=== PATIENT | female | born 1980 | race Caucasian/White ===

== ENCOUNTER 2016-10-26 19:16 | Emergency (ER) | payer OTHER ==
[~2016-10-26] VITALS: Ht 165.1 cm; Wt 78.9 kg
[~2016-10-26 19:16] MED LIST: IMITREX50 MG PO
[2016-10-26 20:57] LABS: INFLUENZA A VIRAL ANTIGEN POSITIVE; INFLUENZA B VIRAL ANTIGEN POSITIVE
[2016-10-26 21:06] LABS: ADD MIUA? YES; BILIRUBIN NEGATIVE; BLOOD NEGATIVE; COLOR YELLOW ((YELLOW)); GLUCOSE (STRIP) NEGATIVE; KETONES NEGATIVE; LEUKOCYTES NEGATIVE; NITRITE NEGATIVE; PROTEIN (STRIP) 30; SPECIFIC GRAVITY 1.031 (1.000-1.030); UROBILINOGEN 0.2 MG/DL (0.2-1.0)
[2016-10-26 21:19] LABS: INTERNAL CONTROL VALID? YES
[2016-10-26] MEDS ORDERED: TAMIFLU75 MG PO (21:20)
[2016-10-26 21:33] LABS: RED BLOOD CELLS 0-5 /HPF (0-5); WHITE BLOOD CELLS 0-5 /HPF (0-5)
[2016-10-26 21:36] LABS: BACTERIA NONE SEEN /HPF; CRYSTALS PRESENT; EPITHELIAL CELLS NONE SEEN /HPF; MUCUS NONE SEEN /LPF; UCUL ADDED? NO
[2016-10-26 21:37] VITALS: BP 114/68
[2016-10-26 21:37] LABS: URIC ACID CRYSTALS 3+ /HPF
== END 2016-10-26 21:38 | disposition home or self-care (01) ==
LOC: EME 19:16
PROVIDERS: Physician Assistant
DX: J10.1 Influenza due to other identified influenza virus with other respiratory manifestations (principal); R19.7 Diarrhea, unspecified; M54.2 Cervicalgia; R51 Headache; Z88.0 Allergy status to penicillin
CPT/HCPCS: 81003; 84703; 87502; 87651 90; 99281; 99284

== ENCOUNTER 2017-01-14 20:07 | Emergency (ER) | payer OTHER ==
[~2017-01-14] VITALS: Ht 165.1 cm; Wt 81.3 kg
[~2017-01-14 20:07] MED LIST changes: +TAMIFLU75 MG PO
[2017-01-14 22:44] LABS: ADD MIUA? YES; BILIRUBIN NEGATIVE; BLOOD LARGE; COLOR YELLOW ((YELLOW)); GLUCOSE (STRIP) NEGATIVE; KETONES NEGATIVE; LEUKOCYTES NEGATIVE; NITRITE NEGATIVE; PROTEIN (STRIP) NEGATIVE; UROBILINOGEN 0.2 MG/DL (0.2-1.0)
[2017-01-14 23:15] LABS: BACTERIA NONE SEEN /HPF; EPITHELIAL CELLS NONE SEEN /HPF; MUCUS NONE SEEN /LPF; UCUL ADDED? NO; WHITE BLOOD CELLS 0-5 /HPF (0-5)
[2017-01-15] MEDS ORDERED: MOTRIN600 MG PO (00:52)
[2017-01-15] MEDS ORDERED: ROBAXIN750 MG PO (00:52)
[2017-01-15] MEDS ORDERED: LIDOCARE1 EACH TP (00:52)
[2017-01-15] MEDS ORDERED: ENDOCET 5-3251 EACH PO (00:52)
[2017-01-15 01:06] VITALS: BP 145/107
== END 2017-01-15 01:12 | disposition home or self-care (01) ==
LOC: EME → EDBD 20:07 → EME 20:07
PROVIDERS: Emergency Medicine
DX: M54.42 Lumbago with sciatica, left side (principal); G56.03 Carpal tunnel syndrome, bilateral upper limbs; Z88.0 Allergy status to penicillin
CPT/HCPCS: 81003; 99281; 99284; J1885; J2270; J3010

== ENCOUNTER 2017-02-05 20:20 | Inpatient (IN) | payer OTHER ==
[~2017-02-05] VITALS: Ht 165.1 cm; Wt 83.1 kg
[~2017-02-05 20:20] MED LIST changes: +ENDOCET 5-3251 EACH PO; +LIDOCARE1 EACH TP; +MOTRIN600 MG PO; +ROBAXIN750 MG PO; +XANAX1 MG PO
[2017-02-05 21:18] LABS: HEMATOCRIT 38.2 % (36.0-46.0); MCH 25.9 PG (29.0-34.0); MCHC 32.2 G/DL (30.0-36.0); MCV 80.6 FL (83-99); PLATELET COUNT 282 K/uL (156-360); RBC DIS.WIDTH-CV 14.1 % (11.8-14.6); RBC DIS.WIDTH-SD 41.4 % (39-53); RED BLOOD COUNT 4.74 M/uL (3.80-5.20); WHITE BLOOD COUNT 11.7 K/uL (4.1-10.2)
[2017-02-05 21:27] LABS: CHLORIDE 108 mEq/L (99-109); POTASSIUM 4.2 mEq/L (3.7-5.4); SODIUM 139 mEq/L (136-147)
[2017-02-05 21:29] LABS: GLUCOSE 96 mg/dL (70-99)
[2017-02-05 21:31] LABS: ANION GAP 6 MEQ/L (2-14); TOTAL BILIRUBIN 0.2 mg/dL (0.0-1.0)
[2017-02-05 21:32] LABS: SERUM ETHYL ALCOHOL < 10 mg/dL
[2017-02-05 21:33] LABS: ALKALINE PHOSPHATASE 75 IU/L (3-129); GFR ESTIMATE (CALCULATED) > 59 mL/min/
[2017-02-05 21:34] LABS: UREA NITROGEN (BUN) 12 mg/dL (9-23)
[2017-02-05 23:06] LABS: ADD MIUA? YES; BILIRUBIN NEGATIVE; BLOOD NEGATIVE; COLOR YELLOW ((YELLOW)); GLUCOSE (STRIP) NEGATIVE; KETONES NEGATIVE; LEUKOCYTES NEGATIVE; NITRITE NEGATIVE; PROTEIN (STRIP) NEGATIVE; SPECIFIC GRAVITY 1.014 (1.000-1.030); UROBILINOGEN 0.2 MG/DL (0.2-1.0)
[2017-02-05 23:18] LABS: AMPHETAMINE NEGATIVE (500 ng/mL); BARBITURATES NEGATIVE (200 ng/mL); BENZODIAZEPINES PRESUMPTIVE POSITIVE (150 ng/mL); COCAINE NEGATIVE (150 ng/mL); INTERNAL CONTROLS VALID? YES; METHADONE NEGATIVE (200 ng/mL); METHAMPHETAMINE NEGATIVE (500 ng/mL); OPIATES (MORPHINE) NEGATIVE (100 ng/mL); OXYCODONE NEGATIVE (100 ng/mL); PHENCYCLIDINE NEGATIVE (25 ng/mL); PROPOXYPHENE NEGATIVE (300 ng/mL); THC CANNABINOIDS NEGATIVE (50 ng/mL); TRICYCLIC ANTIDEPRESSANTS NEGATIVE (300 ng/mL)
[2017-02-05 23:19] LABS: ADD MEDTOX COMMENT Y
[2017-02-05 23:33] LABS: AMORPHOUS URATES CRYSTALS 3+; BACTERIA NONE SEEN /HPF; CRYSTALS PRESENT; EPITHELIAL CELLS 2+ /HPF; MUCUS 2+ /LPF; RED BLOOD CELLS NONE SEEN /HPF (0-5); WHITE BLOOD CELLS NONE SEEN /HPF (0-5)
[2017-02-05] MEDS ORDERED: LEXAPRO10 MG PO (23:59)
[2017-02-06 02:14] VITALS: BP 123/78
[2017-02-06 07:52] VITALS: BP 103/47
[2017-02-06 10:26] VITALS: BP 134/93
[2017-02-06 15:36] VITALS: BP 131/82
[2017-02-07 07:53] VITALS: BP 118/83
[2017-02-07] MEDS ORDERED: LAMICTAL25 MG PO (09:35)
[2017-02-07] MEDS ORDERED: ESCITALOPRAM OX20 MG PO (09:35)
== END 2017-02-07 13:00 | disposition home or self-care (01) | DRG 885 ==
LOC: EME 20:20 → 1WEST 22:42 → EDOF 22:42 → ENRESERV 02-06 01:40 → 1WEST 02-06 02:04
PROVIDERS: Emergency Medicine
DX: F33.9 Major depressive disorder, recurrent, unspecified (principal); X78.1XXA Intentional self-harm by knife, initial encounter; Y92.481 Parking lot as the place of occurrence of the external cause; F41.1 Generalized anxiety disorder; Z81.8 Family history of other mental and behavioral disorders; Z56.0 Unemployment, unspecified; S61.019A Laceration without foreign body of unspecified thumb without damage to nail, initial encounter
CPT/HCPCS: 80053; 81003; 84999; 85027; 90837; 99281; 99285; G0480; Q0177